=== PATIENT | female | born 1990 | race African-American/Black ===

== ENCOUNTER 2016-07-10 00:19 | Emergency (ER) | payer OTHER ==
[2016-07-10 00:29] VITALS: BMI 26.6
[2016-07-10 01:20] LABS: BASOPHIL 1.4 % (0-2.0); EOSINOPHIL 2.1 % (0-4.5); MCH 28.5 pg (25.7-33.7); MCHC 33.6 g/dl (32.0-36.0); MEAN CELL VOLUME 84.8 fl (80-96); MEAN PLT VOLUME 8.6 fl (7.5-11.1); NEUTROPHILS 63.1 % (42.8-82.8); PLATELET COUNT 203 K/MM3 (134-434); RDW 13.7 % (11.6-15.6); WHITE BLOOD COUNT 8.6 K/mm3 (4.0-10.0)
--- NOTE | 2016-07-10 01:24 | PDOC ---
[id number] No Limitations - History of Present Illness Initial Comments: 07/10/16 03:01 The patient is a 26-year-old approximately 6 weeks female (), with no significant past medical history, who presents to the emergency department complaining of chest pain that began approximately at 22:00 tonight. The patient reports she was walking at the movie theatre when she began to feel short of breath. She states her SOB was alleviated after she sat down to watch the movie, but after getting up she began to feel SOB again. She describes her chest pain as if her chest were closing up. She denies associated diaphoresis, or palpitations. She denies decrease in appetite. She reports fatigue and a mild headache. The patient reports she has recently had two colds, both of which have been resolved. She denies cough, fever, chills, or dizziness. She denies nausea, vomiting, diarrhea, or constipation. The patient denies any recent travel, sick contacts, or stress. Allergies: None reported. Past Surgical History: None reported. Social History: Non-smoker. Denies alcohol or drug use. Family History: Mother: hypertension and diabetes. <Fina Bear - Last Filed: 07/10/16 07:00> <Alicia Cornejo - Last Filed: 07/11/16 03:04> - General Chief Complaint: Chest Pain Stated Complaint: CHEST PAIN, SHRTNESS OF BREATH Time Seen by Provider: 07/10/16 00:57 Past History <Fina Bear - Last Filed: 07/10/16 07:00> - Past Medical History Anemia: No Asthma: No Cancer: No Cardiac Disorders: No CVA: No COPD: No CHF: No Dementia: No Diabetes: No GI Disorders: No Disorders: No HTN: No Hypercholesterolemia: No Liver Disease: No Seizures: No Thyroid Disease: No - Surgical History Abdominal Surgery: No Appendectomy: No Cardiac Surgery: No Cholecystectomy: No Lung Surgery: No Neurologic Surgery: No Orthopedic Surgery: No - Reproductive History (#): 3 Para: 1 Therapeutic (s) & number: Yes Spontaneous : 1 - Psycho/Social/Smoking Cessation Hx Anxiety: No Suicidal Ideation: No Smoking Status: No Smoking History: Never smoked Have you smoked in the past 12 months: No Number of Cigarettes Smoked Daily: 0 Information on smoking cessation initiated: No Hx Alcohol Use: No Drug/Substance Use Hx: No Substance Use Type: None Hx Substance Use Treatment: No <Alicia Cornejo - Last Filed: 07/11/16 03:04> - Past Medical History Allergies/Adverse Reactions: Allergies Allergy/AdvReac Type Severity Reaction Status Date / Time No Known Allergies Allergy Verified 07/10/16 00:27 Home Medications: Ambulatory Orders Nitrofurantoin Monohyd/M-Cryst [Macrobid -] 100 mg PO BID #14 capsule 07/10/16 Review of Systems - Review of Systems Able to Perform ROS?: Yes Comments:: 07/10/16 03:01 GENERAL/CONSTITUTIONAL: +Weakness. No fever or chills. HEAD, EYES, EARS, NOSE AND THROAT: No change in vision. No ear pain or discharge. No sore throat. CARDIOVASCULAR: +Chest pain, +shortness of breath. RESPIRATORY: No cough, wheezing, or hemoptysis. GASTROINTESTINAL: No nausea, vomiting, diarrhea or constipation. GENITOURINARY: No dysuria, frequency, or change in urination. MUSCULOSKELETAL: No joint or muscle swelling or pain. No neck or back pain. SKIN: No rash NEUROLOGIC: +Headache. No vertigo, loss of consciousness, or change in strength/ sensation. ENDOCRINE: No increased thirst. No abnormal weight change. HEMATOLOGIC/LYMPHATIC: No anemia, easy bleeding, or history of blood clots. ALLERGIC/IMMUNOLOGIC: No hives or skin allergy. <Fina Bear - Last Filed: 07/10/16 07:00> *Physical Exam - Vital Signs Last Vital Signs Temp Pulse Resp BP Pulse Ox 98.0 F 71 14 105/56 100 07/10/16 00:27 07/10/16 00:27 07/10/16 00:27 07/10/16 00:27 07/10/16 00:27 - Physical Exam Comments: 07/10/16 03:02 GENERAL: Awake, alert, and fully oriented, in no acute distress HEAD: No signs of trauma EYES: PERRLA, EOMI, sclera anicteric, conjunctiva clear ENT: Auricles normal inspection, hearing grossly normal, nares patent, oropharynx clear without exudates. Moist mucosa NECK: Normal ROM, supple, no lymphadenopathy, JVD, or masses LUNGS: Breath sounds equal, clear to auscultation bilaterally. No wheezes, and no crackles HEART: Regular rate and rhythm, normal S1 and S2, no murmurs, rubs or gallops ABDOMEN: Soft, nontender, normoactive bowel sounds. No guarding, no rebound. No masses EXTREMITIES: Normal range of motion, no edema. No clubbing or cyanosis. No cords, erythema, or tenderness NEUROLOGICAL: Cranial nerves II through XII grossly intact. Normal speech, normal gait SKIN: Warm, Dry, normal turgor, no rashes or lesions noted. <Fina Bear - Last Filed: 07/10/16 07:00> - Vital Signs Last Vital Signs Temp Pulse Resp BP Pulse Ox 98.0 F 71 14 105/56 100 07/10/16 00:27 07/10/16 00:27 07/10/16 00:27 07/10/16 00:27 07/10/16 00:27 <Alicia Cornejo - Last Filed: 07/11/16 03:04> Heart Score/ECG Review - ECG Impressions Comment:: 07/10/16 04:12 Vent. Rate: 72 bpm IMPRESSION: Normal sinus rhythm. Incomplete right bundle branch block. <Fina Bear - Last Filed: 07/10/16 07:00> ED Treatment Course - LABORATORY CBC & Chemistry Diagram: 07/10/16 00:54 07/10/16 00:54 - ADDITIONAL ORDERS Additional order review: Laboratory Results 07/10/16 07/10/16 07/10/16 01:20 00:54 00:54 INR Sodium 141 Potassium 3.8 Chloride 104 Carbon Dioxide 28 Anion Gap 9 BUN 14 Creatinine 1.0 D Creat Clearance w eGFR > 60 Random Glucose 83 Calcium 8.6 Total Bilirubin 0.2 AST 13 L ALT 19 Alkaline Phosphatase 61 Creatine Kinase Cancelled 155 Troponin I Cancelled < 0.02 Total Protein 6.9 Albumin 3.3 L Urine HCG, Qual Positive 07/10/16 00:54 INR 1.15 H Sodium Potassium Chloride Carbon Dioxide Anion Gap BUN Creatinine Creat Clearance w eGFR Random Glucose Calcium Total Bilirubin AST ALT Alkaline Phosphatase Creatine Kinase Troponin I Total Protein Albumin Urine HCG, Qual 07/10/16 00:54 RBC 4.18 MCV 84.8 MCHC 33.6 RDW 13.7 MPV 8.6 Neutrophils % 63.1 Lymphocytes % 23.2 Monocytes % 10.2 Eosinophils % 2.1 D Basophils % 1.4 D <Fina Bear - Last Filed: 07/10/16 07:00> - LABORATORY CBC & Chemistry Diagram: 07/10/16 00:54 07/10/16 00:54 <Alicia Cornejo - Last Filed: 07/11/16 03:04> Medical Decision Making - Medical Decision Making 07/11/16 03:02 Pt comes with multiple complaints, including dizziness. All labs and cardiac enzymes are normal. EKG is NSR; rate of 72 bpm. SHe is . Labs revealed that she has a UTI; she will be teated with macrobid. 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 <Fina Bear - Last Filed: 07/10/16 07:00> - Discharge Dispostion Admit: No <Alicia Cornejo - Last Filed: 07/11/16 03:04> Diagnosis at time of Disposition: UTI (urinary tract infection) - Discharge Dispostion Disposition: HOME Condition at time of disposition: Stable - Prescriptions Prescriptions: Nitrofurantoin Monohyd/M-Cryst [Macrobid -] 100 mg PO BID #14 capsule - Referrals Referrals: Ryan Carbajal [Primary Care Provider] - - Patient Instructions Printed Discharge Instructions: DI for Atypical Chest Pain, Urinary Tract Infection
[2016-07-10 01:40] LABS: INR 1.15 (0.82-1.09); PROTHROMBIN TIME (PATIENT) 12.7 SEC (9.98-11.88)
[2016-07-10 02:27] LABS: ALBUMIN 3.3 g/dl (3.4-5.0); ANION GAP 9 (8-16); BILIRUBIN,TOTAL 0.2 mg/dL (0.2-1.0); CALCIUM 8.6 mg/dL (8.5-10.1); CO2 28 mmol/L (21-32); GLUCOSE,RANDOM 83 mg/dL (74-106); SGOT/AST 13 U/L (15-37); SGPT/ALT 19 U/L (12-78); TOT PROT 6.9 g/dl (6.4-8.2)
[2016-07-10 02:29] LABS: ALK PHOS 61 U/L (45-117); TROPONIN I < 0.02 ng/ml (0.00-0.05)
[2016-07-10] MEDS ORDERED: SODIUM CHLORIDE 0.9% 500 ML INFUS.BAG IV ONE (03:00)
[2016-07-10 03:53] LABS: URINE APPEARANCE SLCLOUDY; URINE BILIRUBIN NEGATIVE (NEGATIVE); URINE BLOOD NEGATIVE (NEGATIVE); URINE COLOR YELLOW; URINE GLUCOSE (UA) NEGATIVE (NEGATIVE); URINE KETONE NEGATIVE (NEGATIVE); URINE NITRITE NEGATIVE (NEGATIVE); URINE PROTEIN NEGATIVE (NEGATIVE); URINE UROBILINOGEN NEGATIVE E.U./dl (0.2-1.0)
[2016-07-10 03:54] LABS: URINE LEUK ESTERASE 2+ (NEGATIVE)
[2016-07-10] MEDS ORDERED: NITROFURANTOIN MACROCRYSTAL 50 MG CAPSULE (FP) PO SCH (04:15)
[2016-07-10] MEDS ORDERED: NITROFURANTOIN MACROCRYSTAL 50 MG CAPSULE (FP) ONE (04:19)
[2016-07-10 04:31] VITALS: BP 108/58; PULSE 82; TEMP 98
[2016-07-10 05:28] LABS: URINE MUCUS RARE; URINE RBC 1 /hpf (0-3); URINE WBC 11 /hpf (3-5)
--- NOTE | 2016-07-11 23:42 | EKG ---
Test Reason : Blood Pressure : / mmHG Vent. Rate : 072 BPM Atrial Rate : 072 BPM P-R Int : 160 ms QRS Dur : 094 ms QT Int : 392 ms P-R-T Axes : 037 041 029 degrees QTc Int : 429 ms NORMAL SINUS RHYTHM INCOMPLETE RIGHT BUNDLE BRANCH BLOCK BORDERLINE ECG NO PREVIOUS ECGS AVAILABLE Confirmed by ADELINE KAY MD ([id number]) on 07/11/2016 11:42:03 PM Referred By: Confirmed By:ADELINE KAY MD
== END 2016-07-10 04:19 | disposition home or self-care (01) ==
LOC: JER 00:19
DX: O23.41 Unspecified infection of urinary tract in pregnancy, first trimester (principal); Z3A.01 Less than 8 weeks gestation of pregnancy
CPT/HCPCS: 36415; 80053; 81003; 81015; 82550; 82553; 84484; 84703; 85025; 85610; 93005; 93010; 99282-25

== ENCOUNTER 2018-07-30 22:52 | Inpatient (IN) | payer OTHER ==
[2018-07-30 23:37] LABS: BASO % 0.2 % (0-2.0); EOS % 0.8 % (0-4.5); HEMATOCRIT 34.8 % (32.4-45.2); LYMPH % 15.3 % (8-40); MCH 29.2 pg (25.7-33.7); MCHC 34.5 g/dl (32.0-36.0); MEAN CELL VOLUME 84.8 fl (80-96); MEAN PLT VOLUME 8.3 fl (7.5-11.1); MONO % 11.2 % (3.8-10.2); NEUT % 72.5 % (42.8-82.8); PLATELET COUNT 184 K/MM3 (134-434); RDW 14.4 % (11.6-15.6); WHITE BLOOD COUNT 8.7 K/mm3 (4.0-10.0)
[2018-07-30] MEDS ORDERED: DEXTROSE 5%-LACTATED RINGERS 1,000 ML IV SCH (23:45)
[2018-07-30 23:53] LABS: ACTIVATED PTT 30.6 SECONDS (25.2-36.5)
[2018-07-31 00:03] LABS: INR 1.07 (0.83-1.09); PROTHROMBIN TIME (PATIENT) 12.6 SEC (9.7-13.0)
[2018-07-31 00:04] LABS: ANION GAP 8 MMOL/L (8-16); BLOOD UREA NITROGEN 13 mg/dL (7-18); CALCIUM 8.7 mg/dL (8.5-10.1); CHLORIDE 105 mmol/L (98-107); CO2 21 mmol/L (21-32); CREATININE 0.7 mg/dL (0.55-1.3); GLUCOSE,RANDOM 99 mg/dL (74-106); SODIUM 134 mmol/L (136-145)
[2018-07-31 00:08] VITALS: BMI 36.9
[2018-07-31] MEDS ORDERED: PROMETHAZINE HCL 25 MG/1 ML VIAL IVPB ONE (00:30)
[2018-07-31] MEDS ORDERED: BUTORPHANOL TARTRATE 1 MG/ML VIAL IVPB ONE (00:30)
[2018-07-31] MEDS ORDERED: PROMETHAZINE HCL 25 MG/1 ML VIAL ONE (00:34)
[2018-07-31] MEDS ORDERED: BUTORPHANOL TARTRATE 1 MG/ML VIAL ONE ×2 (00:34)
[2018-07-31] MEDS ORDERED: LIDOCAINE HCL 1% PRESERVATIVE FREE - 30ML VIAL ONE (01:28)
[2018-07-31] MEDS ORDERED: OXYTOCIN 20 UNITS in 0.9% NS 20 UNIT/1,000 ML INFUS.BAG IV ONE ×2 (01:29→04:07)
[2018-07-31] MEDS ORDERED: FENTANYL/BUPIVACAINE/NS/PF - PCEA - 50 ML DISP.SYRIN EP ONE (02:23)
[2018-07-31] MEDS ORDERED: BUPIVACAINE HCL/PF 0.25% (2.5MG/ML) 10 ML VIAL ONE (02:29)
[2018-07-31] MEDS ORDERED: LIDO 2%/EPI 1:200000 PRESRVFRE (20 ML SDVIAL) ONE (02:29)
[2018-07-31] MEDS ORDERED: DEXTROSE 5%-LACTATED RINGERS 1,000 ML IV SCH (03:00)
--- NOTE | 2018-07-31 03:01 | HP ---
Past Medical History - Admission Chief Complaint: Labor pain History of Present Illness: 28 yo @ 40 weeks gestation, @[facility] 07/26/18, admitted for labor pain. History Source: Patient Limitations to Obtaining History: No Limitations - Past Medical History ...: 4 ...Para: 1 ...Term: 1 ...: 0 ...Spon : 0 ...Induced : 2 ...Multiple Gestation: 0 ...LMP: 10/19/17 ... Weeks Gestation by Dates: 40.4 ...EDC by Dates: 07/26/18 ...EDC by Sono: 07/26/18 - Past Surgical History Past Surgical History: Yes: None Hx Myomectomy: No Hx Transabdominal Cerclage: No - Smoking History Smoking history: Never smoked Have you smoked in the past 12 months: No Aproximately how many cigarettes per day: 0 - Alcohol/Substance Use Hx Alcohol Use: No - Social History History of Recent Travel: No Home Medications - Allergies Allergies/Adverse Reactions: Allergies Allergy/AdvReac Type Severity Reaction Status Date / Time No Known Allergies Allergy Verified 07/30/18 23:20 - Home Medications Home Medications: Ambulatory Orders Ferrous Sulfate [Iron] 325 mg PO DAILY 06/16/18 Vit 108/Iron/Folic AC [ One Tablet] 1 tab PO DAILY 07/30/18 Family Disease History - Family Disease History Family History: Unremarkable Review of Systems - Review of Systems Constitutional: reports: No Symptoms Eyes: reports: No Symptoms HENT: reports: No Symptoms Neck: reports: No Symptoms Cardiovascular: reports: No Symptoms Respiratory: reports: No Symptoms Gastrointestinal: reports: No Symptoms Genitourinary: reports: Pain Breasts: reports: No Symptoms Reported Musculoskeletal: reports: No Symptoms Integumentary: reports: No Symptoms Neurological: reports: No Symptoms Endocrine: reports: No Symptoms Hematology/Lymphatic: reports: No Symptoms Psychiatric: reports: No Symptoms Pain Intensity: 7 Physical Exam - Maternity Vital Signs: Vital Signs Temperature 98.3 F 07/31/18 01:45 Pulse Rate 67 07/31/18 01:45 Respiratory Rate 20 07/31/18 01:45 Blood Pressure 130/80 07/31/18 01:45 O2 Sat by Pulse Oximetry (%) Constitutional: Yes: Well Nourished Eyes: Yes: Conjunctiva Clear HENT: Yes: Atraumatic Neck: Yes: Supple Cardiovascular: Yes: Regular Rate and Rhythm Lungs: Clear to auscultation - Abdominal Exam/OB Number of Fetuses: Single Presentation: Vertex - Vaginal Exam/OB Vaginal Bleediing: No Dilatation (cm): 4 - Physical Exam ...Motor Strength: WNL Psychiatric: Yes: Alert, Oriented - Labs Lab Results: CBC, BMP 07/30/18 23:25 07/30/18 23:25 Problem List - Problems (1) Pain during labor Code(s): O99.89 - OTH DISEASES AND CONDITIONS COMPL PREG/CHLDBRTH; R52 - PAIN, UNSPECIFIED Assessment/Plan Active labor Admit to L&D Anticipate
[2018-07-31] MEDS: IBUPROFEN 600 MG TABLET (FP) PO PRN ×5 (03:05→21:01)
[2018-07-31] MEDS: ACETAMINOPHEN 325 MG TABLET (FP) PO PRN ×5 (03:05→21:01)
[2018-07-31] MEDS ORDERED: BENZOCAINE 28 GM HEMORRHOIDAL OINTMENT TP PRN (03:05)
[2018-07-31] MEDS ORDERED: BISACODYL 10 MG SUPP.RECT RC PRN (03:05)
[2018-07-31] MEDS ORDERED: WITCH HAZEL 50% (TUCKS) 40 PAD/JAR PAD TP PRN (03:05)
[2018-07-31] MEDS ORDERED: METHYLERGONOVINE MALEATE 0.2 MG/1 ML AMP IM PRN (03:05)
[2018-07-31] MEDS ORDERED: BENZOCAINE 20% 57 GM BOTTLE TP PRN (03:05)
--- NOTE | 2018-07-31 03:10 | PN ---
Delivery - Delivery Vaginal Delivery: Spontaneous Episiotomy/Laceration: None Delivery, Single - Feeding Plan Initial Plan: Elected not to breastfeed exclusively throughout hospitalization Remarks - Remarks Remarks: Normal spontaneous vaginal delivery Of a live boy over intact perineum. Nose / Oropharynx suction @ perineum. Cord clamped and cut. Baby handed to nurse Placenta expelled spontaneously intact.
[2018-07-31] MEDS ORDERED: OXYTOCIN 20 UNITS in 0.9% NS 20 UNIT/1,000 ML INFUS.BAG IV SCH (03:15)
[2018-07-31] MEDS: FERROUS SO4 325 MG TABLET (FP) PO SCH ×2 (10:57→21:07)
[2018-07-31] MEDS: PRENATAL VITAMINS W/ FOLIC ACID TABLET (FP) PO SCH (10:57)
[2018-08-01] MEDS: IBUPROFEN 600 MG TABLET (FP) PO PRN ×2 (03:06→22:08)
[2018-08-01] MEDS: ACETAMINOPHEN 325 MG TABLET (FP) PO PRN ×2 (03:06→22:09)
[2018-08-01 08:25] LABS: BASO % 0.5 % (0-2.0); EOS % 2.3 % (0-4.5); HEMOGLOBIN 11.3 GM/dL (10.7-15.3); LYMPH % 28.7 % (8-40); MCHC 34.1 g/dl (32.0-36.0); MEAN CELL VOLUME 84.9 fl (80-96); MEAN PLT VOLUME 8.6 fl (7.5-11.1); MONO % 11.2 % (3.8-10.2); NEUT % 57.3 % (42.8-82.8); PLATELET COUNT 187 K/MM3 (134-434); RBC 3.89 M/mm3 (3.60-5.2)
--- NOTE | 2018-08-01 09:26 | PN ---
Post Progress Note - Subjective Subjective: Pt seen/evaluated and doing well. Pain controlled, VB minimal. Tolerating regular diet. AMbulating, voiding. NO CP/SOB/F/C/SILVA. Type of Delivery: Vital Signs: Vital Signs Temperature 98.3 F 08/01/18 02:00 Pulse Rate 82 08/01/18 02:00 Respiratory Rate 18 08/01/18 02:00 Blood Pressure 124/78 08/01/18 02:00 O2 Sat by Pulse Oximetry (%) 100 07/31/18 03:45 Uterus: Yes: Fundus Firm Abdomen/GI: Yes: Abdomen soft Lochia: Yes: Rubra Lochia, amount: Small Activity: Ambulating - Labs Labs: CBC WBC 7.0 K/mm3 (4.0-10.0) 08/01/18 07:15 RBC 3.89 M/mm3 (3.60-5.2) 08/01/18 07:15 Hgb 11.3 GM/dL (10.7-15.3) 08/01/18 07:15 Hct 33.0 % (32.4-45.2) 08/01/18 07:15 MCV 84.9 fl (80-96) 08/01/18 07:15 MCH 29.0 pg (25.7-33.7) 08/01/18 07:15 MCHC 34.1 g/dl (32.0-36.0) 08/01/18 07:15 RDW 15.0 % (11.6-15.6) 08/01/18 07:15 Plt Count 187 K/MM3 (134-434) 08/01/18 07:15 MPV 8.6 fl (7.5-11.1) 08/01/18 07:15 Absolute Neuts (auto) 4.0 K/mm3 (1.5-8.0) 08/01/18 07:15 Neutrophils % 57.3 % (42.8-82.8) D 08/01/18 07:15 Lymphocytes % 28.7 % (8-40) D 08/01/18 07:15 Monocytes % 11.2 % (3.8-10.2) H 08/01/18 07:15 Eosinophils % 2.3 % (0-4.5) D 08/01/18 07:15 Basophils % 0.5 % (0-2.0) 08/01/18 07:15 Nucleated RBC % 0 % (0-0) 08/01/18 07:15 Problem List - Problems (1) Vaginal delivery Code(s): O80 - ENCOUNTER FOR FULL-TERM UNCOMPLICATED DELIVERY Assessment/Plan ambulation regular diet PO pain meds routine care
[2018-08-01] MEDS ORDERED: DIPHTH,PERTUSS(ACELL),TET 0.5 ML DISP.SYRIN IM ONE (10:00)
[2018-08-01] MEDS: PRENATAL VITAMINS W/ FOLIC ACID TABLET (FP) PO SCH (10:36)
[2018-08-01] MEDS: FERROUS SO4 325 MG TABLET (FP) PO SCH ×2 (10:36→22:08)
[2018-08-01] MEDS ORDERED: SENNOSIDES/DOCUSATE COMBO (SENNA PLUS) TABLET (UD) PO PRN (22:00)
[2018-08-02 08:33] VITALS: BP 124/57; PULSE 67; TEMP 98.1
--- NOTE | 2018-08-02 09:03 | DS ---
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 Vital Signs: Vital Signs Temperature 98.1 F 08/02/18 07:35 Pulse Rate 67 08/02/18 07:35 Respiratory Rate 20 08/02/18 07:35 Blood Pressure 124/57 L 08/02/18 07:35 O2 Sat by Pulse Oximetry (%) 100 07/31/18 03:45 Constitutional: Yes: Well Nourished, No Distress HENT: Yes: WNL Neck: Yes: WNL Cardiovascular: Yes: WNL Respiratory: Yes: WNL Gastrointestinal: Yes: WNL, Normal Bowel Sounds ....Post : Yes: Uterus firm, Uterus non-tender Breast(s): Yes: WNL Musculoskeletal: Yes: WNL Extremities: Yes: WNL Edema: No Neurological: Yes: WNL, Alert, Oriented Labs: CBC, BMP 08/01/18 07:15 07/30/18 23:25 Delivery - Delivery Vaginal Delivery: Spontaneous Type of Anesthesia: None Episiotomy/Laceration: None EBL (cc): 250 Delivery, Single - Stages of Labor Date 1st Stage Initiatied: 07/30/18 Time 1st Stage Initiated: 18:00 Date 2nd Stage Initiated: 07/31/18 Time 2nd Stage Initiated: 02:30 Date of Delivery: 07/31/18 Time of Delivery: 02:44 Time Placenta Delivered: 02:50 - 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/[place] Present: No Gender: Male Weight: 7 lb 15 oz Position: Right, OA Total Hours ROM (Hrs/Mins): 2hrs 14min - 1 Minute Total Score: 8 5 Minutes Total Score: 9 - Feeding Plan Initial Plan: Elected not to breastfeed exclusively throughout hospitalization Discharge Summary Reason For Visit: LABOR Current Active Problems Pain during labor (Acute) Vaginal delivery (Acute) Procedures: Principal: Normal vaginal delivery Hospital Course: Unremarkable Condition: Good - Instructions Diet, Activity, Other Instructions: Physical activity Resume your normal everyday activity as tolerated no heavy lifting or exercise until seen by your surgeon. You may walk unlimited derrick of and climb stairs. You may resume driving the car when you feel safe and comfortable behind the wheel. No sexual activity as instructed. Wound care If you have a bandage, leave it on, and keep dry for 48-72 hours. After that time discard the outer bandage. If they are tapes on the skin under the out of bandage leave them in place. They will peel off in the next 7 to 10 days. Do Not Peel them off. You may shower the day after surgery. If there are tapes present on the skin, you may shower over them. Diet There are no dietary restrictions. Eat healthy, high-fiber foods. Drink 6 to 8 glasses of liquid each day. This will assist in keeping your bowels are regular. Pain management You may take Tylenol or acetaminophen or Ibuprofen (for example, Motrin, Advil etc.) from my pain prescription medication is ordered should be taken as prescribed for moderate to severe pain. Call MD for any of the following: Severe pain not relieved by medication Fever of 101 or higher Excessive bleeding or drainage on dressing Inability to urinate Disposition: HOME - Home Medications Comprehensive Discharge Medication List: Ambulatory Orders Ferrous Sulfate [Iron] 325 mg PO DAILY 06/16/18 Vit 108/Iron/Folic AC [ One Tablet] 1 tab PO DAILY 07/30/18 Ibuprofen [Motrin -] 600 mg PO QID #28 tablet 08/01/18
[2018-08-02] MEDS: PRENATAL VITAMINS W/ FOLIC ACID TABLET (FP) PO SCH (09:27)
[2018-08-02] MEDS: FERROUS SO4 325 MG TABLET (FP) PO SCH (09:27)
== END 2018-08-02 11:30 | disposition home or self-care (01) | DRG 560 ==
LOC: JDEL 22:52 → JLDR 23:15 → J3W 07-31 04:30
PROVIDERS: ADMIT Obstetrics & Gynecology; ATTEND Obstetrics & Gynecology
PROC: 10E0XZZ Delivery of Products of Conception, External Approach (ICD-10-PCS; principal; 2018-07-31)
DX: O48.0 Post-term pregnancy (principal); Z3A.40 40 weeks gestation of pregnancy; Z37.0 Single live birth
CPT/HCPCS: 36415; 59025; 59409; 80048; 85025; 85610; 85730; 86593; 86850; 86900; 86901; 90715

== ENCOUNTER 2019-05-19 01:57 | Emergency (ER) | payer OTHER ==
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
[2019-05-19 03:57] VITALS: TEMP 98.1; BMI 28.0
[2019-05-19] MEDS ORDERED: KETOROLAC TROMETHAMINE 60 MG/2 ML VIAL IM ONE (04:17)
[2019-05-19] MEDS ORDERED: KETOROLAC TROMETHAMINE 60 MG/2 ML VIAL ONE (04:20)
[2019-05-19] MEDS ORDERED: LIDOCAINE 5% TOPICAL PATCH TP ONE (05:45)
[2019-05-19] MEDS ORDERED: LIDOCAINE 5% TOPICAL PATCH ONE (06:06)
[2019-05-19 06:18] VITALS: BP 117/74; PULSE 70
[2019-05-19] MEDS ORDERED: LIDOCAINE PATCH REMOVAL MC SCH (22:00)
== END 2019-05-19 06:15 | disposition home or self-care (01) ==
LOC: JER 01:57
DX: M62.830 Muscle spasm of back (principal); V49.49XA Driver injured in collision with other motor vehicles in traffic accident, initial encounter; Y92.414 Local residential or business street as the place of occurrence of the external cause; Y93.89 Activity, other specified; Y99.8 Other external cause status
CPT/HCPCS: 71046-TC-FY; 72100-TC-FY; 84703; 99282-25

== ENCOUNTER 2020-04-23 18:28 | Emergency (ER) | payer OTHER ==
[2020-04-23 18:34] VITALS: TEMP 98.5; BMI 28.8
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
[2020-04-23 18:53] LABS: BASO % 0.5 % (0-2.0); EOS % 2.8 % (0-4.5); HEMATOCRIT 40.5 % (32.4-45.2); HEMOGLOBIN 13.2 GM/dL (10.7-15.3); LYMPH % 29.1 % (8-40); MCHC 32.5 g/dl (32.0-36.0); MEAN CELL VOLUME 89.3 fl (80-96); MEAN PLT VOLUME 8.9 fl (7.5-11.1); MONO % 9.9 % (3.8-10.2); NEUT % 57.7 % (42.8-82.8); PLATELET COUNT 245 K/MM3 (134-434); RBC 4.54 M/mm3 (3.60-5.2); RDW 15.1 % (11.6-15.6); WHITE BLOOD COUNT 6.4 K/mm3 (4.0-10.0)
[2020-04-23 19:21] LABS: POTASSIUM 4.2 mmol/L (3.5-5.1)
[2020-04-23 19:23] LABS: ALBUMIN 3.6 g/dl (3.4-5.0); CALCIUM 9.4 mg/dL (8.5-10.1); MAGNESIUM 2.4 mg/dL (1.8-2.4)
[2020-04-23 19:24] LABS: BLOOD UREA NITROGEN 20.6 mg/dL (7-18)
[2020-04-23 19:26] LABS: CREATININE 1.1 mg/dL (0.55-1.3)
[2020-04-23 19:28] LABS: BILIRUBIN,TOTAL 0.4 mg/dL (0.2-1); TOT PROT 7.6 g/dl (6.4-8.2)
[2020-04-23] MEDS ORDERED: LACTATED RINGERS SOLUTION 1000 ML INFUS.BAG IV ONE (19:38)
[2020-04-23] MEDS ORDERED: SODIUM CHLORIDE 1,000 ML IV STA (19:38)
[2020-04-23 20:02] LABS: EPI CELLS >36 /uL (0-25.1); HCG,QUALITATIVE URINE Negative; HYALINE CASTS 1 /uL (0-3.1); PH,URINE 5.5 (5.0-8.0); URINE APPEARANCE CLOUDY; URINE BACTERIA 262 /uL (0-1359); URINE BILIRUBIN NEGATIVE (NEGATIVE); URINE COLOR YELLOW; URINE GLUCOSE (UA) NEGATIVE (NEGATIVE); URINE KETONE NEGATIVE (NEGATIVE); URINE LEUK ESTERASE TRACE (NEGATIVE); URINE NITRITE NEGATIVE (NEGATIVE); URINE PROTEIN NEGATIVE (NEGATIVE); URINE RBC 2 /uL (0-23.9); URINE UROBILINOGEN 0.2 mg/dL (0.2-1.0); URINE WBC 22 /uL (0-25.8)
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
[2020-04-23 22:27] VITALS: BP 132/88; PULSE 86
--- NOTE | 2020-04-24 11:49 | EKG ---
Test Reason : Blood Pressure : / mmHG Vent. Rate : 060 BPM Atrial Rate : 060 BPM P-R Int : 160 ms QRS Dur : 090 ms QT Int : 412 ms P-R-T Axes : 023 032 029 degrees QTc Int : 412 ms NORMAL SINUS RHYTHM NORMAL ECG WHEN COMPARED WITH ECG OF 10-JUL-2016 00:40, T WAVE INVERSION NOW EVIDENT IN ANTERIOR LEADS Confirmed by CHARITY STEIN MD ([id number]) on 04/24/2020 11:49:16 AM Referred By: Confirmed By:CHARITY STEIN MD
== END 2020-04-23 22:27 | disposition home or self-care (01) ==
LOC: JER 18:28
PROC: 3E0337Z Introduction of Electrolytic and Water Balance Substance into Peripheral Vein, Percutaneous Approach (ICD-10-PCS; principal; 2020-04-23)
DX: R53.1 Weakness (principal); R11.2 Nausea with vomiting, unspecified
CPT/HCPCS: 36415; 70450-TC; 80053; 81003; 83036; 83735; 84443; 84703; 85025; 87077; 87086; 87389; 87491; 87591; 93005; 93010; 99285-25

== ENCOUNTER 2020-05-16 18:23 | Emergency (ER) | payer OTHER ==
[2020-05-16 18:39] VITALS: BP 124/82; PULSE 69; TEMP 98.1; BMI 28.0
== END 2020-05-16 20:06 | disposition home or self-care (01) ==
LOC: JER 18:23 → JERFT 18:23
DX: Z03.818 Encounter for observation for suspected exposure to other biological agents ruled out (principal)
CPT/HCPCS: 93005; 93010; 99284-25; C9803; U0003

== ENCOUNTER 2020-05-19 19:28 | Emergency (ER) | payer OTHER ==
[2020-05-19 19:32] VITALS: BP 113/79; PULSE 78; TEMP 98.4; BMI 28.3
[2020-05-19 21:49] LABS: BASO % 0.7 % (0-2.0); EOS % 2.9 % (0-4.5); HEMATOCRIT 40.9 % (32.4-45.2); HEMOGLOBIN 13.2 GM/dL (10.7-15.3); LYMPH % 30.9 % (8-40); MCH 28.5 pg (25.7-33.7); MCHC 32.3 g/dl (32.0-36.0); MEAN CELL VOLUME 88.4 fl (80-96); MEAN PLT VOLUME 9.8 fl (7.5-11.1); MONO % 8.9 % (3.8-10.2); NEUT % 56.6 % (42.8-82.8); PLATELET COUNT 229 K/MM3 (134-434); RBC 4.62 M/mm3 (3.60-5.2); RDW 13.7 % (11.6-15.6)
[2020-05-19 21:57] LABS: HCG,QUALITATIVE URINE Negative
[2020-05-19 21:58] LABS: EPI CELLS 15 /uL (0-25.1); HYALINE CASTS 1 /uL (0-3.1); URINE APPEARANCE CLEAR; URINE BACTERIA 167 /uL (0-1359); URINE BILIRUBIN NEGATIVE (NEGATIVE); URINE COLOR YELLOW; URINE GLUCOSE (UA) NEGATIVE (NEGATIVE); URINE KETONE TRACE (NEGATIVE); URINE LEUK ESTERASE 1+ (NEGATIVE); URINE NITRITE NEGATIVE (NEGATIVE); URINE PROTEIN NEGATIVE (NEGATIVE); URINE RBC 3 /uL (0-23.9); URINE WBC 11 /uL (0-25.8)
[2020-05-19 22:06] LABS: CHLORIDE 107 mmol/L (98-107); POTASSIUM 3.7 mmol/L (3.5-5.1); SODIUM 141 mmol/L (136-145)
[2020-05-19 22:08] LABS: CALCIUM 9.1 mg/dL (8.5-10.1)
[2020-05-19 22:09] LABS: ALBUMIN 3.4 g/dl (3.4-5.0); ANION GAP 3 MMOL/L (8-16); BLOOD UREA NITROGEN 19.6 mg/dL (7-18); CO2 31 mmol/L (21-32); GLUCOSE,RANDOM 88 mg/dL (74-106)
[2020-05-19 22:12] LABS: CREATININE 1.1 mg/dL (0.55-1.3); SGOT/AST 17 U/L (15-37); SGPT/ALT 16 U/L (13-61)
[2020-05-19 22:14] LABS: BILIRUBIN,TOTAL 0.5 mg/dL (0.2-1); TOT PROT 7.5 g/dl (6.4-8.2)
[2020-05-19 22:15] LABS: ALK PHOS 80 U/L (45-117)
== END 2020-05-20 00:47 | disposition home or self-care (01) ==
LOC: JER 19:28
DX: R13.10 Dysphagia, unspecified (principal)
CPT/HCPCS: 36415; 70491-TC; 71046-TC-FY; 80053; 81003; 82550; 84443; 84484; 84703; 85025; 87070; 87086; 87880; 93005; 93010; 99285-25; Q9967

== ENCOUNTER 2020-08-18 11:44 | Emergency (ER) | payer OTHER ==
[2020-08-18 12:13] VITALS: TEMP 98.4; BMI 28.5
[2020-08-18] MEDS ORDERED: FAMOTIDINE 20 MG/50 ML IVPB 20 MG/50 ML MG IVPB ONE ×2 (13:34→13:47)
[2020-08-18] MEDS ORDERED: SODIUM CHLORIDE 1,000 ML IV STA (13:34)
[2020-08-18] MEDS ORDERED: MAG HYDROX/AL HYDROX/SIMETH -MYLANTA- ORAL SUSPENSION PO ONE (13:35)
[2020-08-18] MEDS ORDERED: ACETAMINOPHEN 1000 MG/100 ML VIAL (NON FORMULARY) IVPB ONE (13:35)
[2020-08-18] MEDS ORDERED: MAG HYDROX/AL HYDROX/SIMETH 30 ML UNIT-DOSE CUP ONE (13:46)
[2020-08-18] MEDS ORDERED: ACETAMINOPHEN INJECTION 100 ML IVPB ONE (13:46)
[2020-08-18 13:55] LABS: BASO % 0.9 % (0-2.0); EOS % 2.5 % (0-4.5); HEMATOCRIT 36.5 % (32.4-45.2); HEMOGLOBIN 12.4 GM/dL (10.7-15.3); LYMPH % 42.7 % (8-40); MCH 29.3 pg (25.7-33.7); MEAN CELL VOLUME 86.2 fl (80-96); MEAN PLT VOLUME 8.7 fl (7.5-11.1); MONO % 7.8 % (3.8-10.2); NEUT % 46.1 % (42.8-82.8); PLATELET COUNT 256 K/MM3 (134-434); RBC 4.23 M/mm3 (3.60-5.2); RDW 13.9 % (11.6-15.6)
[2020-08-18 14:19] LABS: EPI CELLS 10 /uL (0-25.1); HYALINE CASTS 1 /uL (0-3.1); URINE APPEARANCE CLEAR; URINE BACTERIA 1857 /uL (0-1359); URINE BILIRUBIN NEGATIVE (NEGATIVE); URINE COLOR YELLOW; URINE GLUCOSE (UA) NEGATIVE (NEGATIVE); URINE KETONE NEGATIVE (NEGATIVE); URINE LEUK ESTERASE TRACE (NEGATIVE); URINE NITRITE NEGATIVE (NEGATIVE); URINE PROTEIN NEGATIVE (NEGATIVE); URINE RBC 4 /uL (0-23.9); URINE UROBILINOGEN 0.2 mg/dL (0.2-1.0); URINE WBC 14 /uL (0-25.8)
[2020-08-18 14:20] LABS: HCG,QUALITATIVE URINE Negative
[2020-08-18 14:26] LABS: CHLORIDE 104 mmol/L (98-107); POTASSIUM 4.2 mmol/L (3.5-5.1); SODIUM 136 mmol/L (136-145)
[2020-08-18 14:28] LABS: CALCIUM 8.9 mg/dL (8.5-10.1)
[2020-08-18 14:29] LABS: ALBUMIN 3.5 g/dl (3.4-5.0); ANION GAP 5 MMOL/L (8-16); BLOOD UREA NITROGEN 13.8 mg/dL (7-18); CO2 27 mmol/L (21-32); GLUCOSE,RANDOM 77 mg/dL (74-106)
[2020-08-18 14:32] LABS: CREATININE 0.9 mg/dL (0.55-1.3); SGOT/AST 16 U/L (15-37); SGPT/ALT 19 U/L (13-61)
[2020-08-18 14:33] LABS: BILIRUBIN,TOTAL 0.7 mg/dL (0.2-1); TOT PROT 7.4 g/dl (6.4-8.2)
[2020-08-18 14:34] LABS: ALK PHOS 71 U/L (45-117)
[2020-08-18 15:00] VITALS: BP 132/66; PULSE 70
== END 2020-08-18 16:45 | disposition home or self-care (01) ==
LOC: JERFT 11:44 → JER 11:44 → JERFT 16:45
PROC: 3E0333Z Introduction of Anti-inflammatory into Peripheral Vein, Percutaneous Approach (ICD-10-PCS; principal; 2020-08-18)
PROC: 3E033GC Introduction of Other Therapeutic Substance into Peripheral Vein, Percutaneous Approach (ICD-10-PCS; 2020-08-18)
PROC: 3E0337Z Introduction of Electrolytic and Water Balance Substance into Peripheral Vein, Percutaneous Approach (ICD-10-PCS; 2020-08-18)
DX: N39.0 Urinary tract infection, site not specified (principal); R51.9 Headache, unspecified; B37.9 Candidiasis, unspecified
CPT/HCPCS: 36415; 70450-TC; 71046-TC-FY; 80053; 81003; 82550; 84484; 84703; 85025; 87070; 87077; 87086; 87205; 93005; 93010; 99285-25; J0131

== ENCOUNTER 2020-12-04 21:56 | Emergency (ER) | payer OTHER ==
[2020-12-04 22:13] VITALS: BP 118/77; PULSE 92; TEMP 98.6; BMI 28.8
[2020-12-05] MEDS ORDERED: BACITRACIN 15 GM TUBE TOPICAL OINTMENT ONE (01:13)
== END 2020-12-05 02:05 | disposition home or self-care (01) ==
LOC: JER 21:56
DX: O20.8 Other hemorrhage in early pregnancy (principal)
CPT/HCPCS: 36415; 76817-TC; 80053; 81003; 84702; 85025; 85610; 85730; 86850; 86900; 86901; 87086; 99284-25

== ENCOUNTER 2021-07-13 10:00 | Inpatient (IN) | payer OTHER ==
[2021-07-13] MEDS ORDERED: BUTORPHANOL TARTRATE 2 MG/ML VIAL IVPB PRN (10:17)
[2021-07-13] MEDS ORDERED: PROMETHAZINE HCL 25 MG/1 ML VIAL IVPB ONE (10:19)
[2021-07-13] MEDS ORDERED: DINOPROSTONE 10 MG VAGINAL SUPPOSITORY VG ONE (10:20)
[2021-07-13] MEDS ORDERED: AMPICILLIN - 2 GM in SODIUM CHLORIDE 100 ML IVPB ONE (10:29)
[2021-07-13 11:46] VITALS: BMI 34.8
[2021-07-13] MEDS ORDERED: AMPICILLIN - 1 GM in SODIUM CHLORIDE 100 ML IVPB SCH (14:30)
[2021-07-13] MEDS: ELECTROLYTE-148 SOLN 1,000 ML IV SCH ×2 (14:56→20:00)
[2021-07-13] MEDS ORDERED: AMPICILLIN SODIUM 2 GM VIAL ONE (15:59)
[2021-07-13] MEDS ORDERED: AMPICILLIN SODIUM 1 GM VIAL ONE ×2 (19:55→23:43)
[2021-07-13] MEDS: AMPICILLIN - 1 GM in SODIUM CHLORIDE 100 ML IVPB SCH ×2 (20:00→23:50)
[2021-07-14] MEDS ORDERED: FENTANYL/BUPIVACAINE/NS/PF - PCEA - 50 ML DISP.SYRIN EP ONE (01:02)
[2021-07-14] MEDS ORDERED: OXYTOCIN 20 UNITS in 0.9% NS 20 UNIT/1,000 ML INFUS.BAG IV ONE (01:17)
[2021-07-14] MEDS ORDERED: LIDOCAINE HCL 1% PRESERVATIVE FREE - 30ML VIAL ONE (01:17)
[2021-07-14] MEDS ORDERED: NALOXONE HCL 0.4 MG/ML VIAL IVPUSH PRN (01:17)
[2021-07-14] MEDS ORDERED: FENTANYL/BUPIVACAINE/NS/PF - PCEA - 50 ML DISP.SYRIN EP SCH (01:30)
[2021-07-14] MEDS: ELECTROLYTE-148 SOLN 1,000 ML IV SCH (02:00)
[2021-07-14] MEDS: AMPICILLIN - 1 GM in SODIUM CHLORIDE 100 ML IVPB SCH (03:45)
[2021-07-14] MEDS ORDERED: AMPICILLIN SODIUM 1 GM VIAL ONE (03:48)
[2021-07-14] MEDS ORDERED: BENZOCAINE 20% 57 GM BOTTLE TP PRN (04:13)
[2021-07-14] MEDS ORDERED: BISACODYL 10 MG SUPP.RECT RC PRN (04:13)
[2021-07-14] MEDS ORDERED: oxyCODONE HCL 5 MG TABLET PO PRN (04:13)
[2021-07-14] MEDS ORDERED: WITCH HAZEL 50% (TUCKS) 40 PAD/JAR PAD TP PRN (04:13)
[2021-07-14] MEDS ORDERED: BENZOCAINE 28 GM HEMORRHOIDAL OINTMENT TP PRN (04:13)
[2021-07-14] MEDS ORDERED: METHYLERGONOVINE MALEATE 0.2 MG/1 ML AMP IM PRN (04:13)
[2021-07-14] MEDS ORDERED: ACETAMINOPHEN 325 MG TABLET (FP) PO PRN (04:13)
[2021-07-14] MEDS ORDERED: OXYTOCIN 20 UNITS in 0.9% NS 20 UNIT/1,000 ML INFUS.BAG IV SCH (04:15)
[2021-07-14] MEDS: IBUPROFEN 600 MG TABLET (FP) PO PRN ×4 (08:55→21:42)
[2021-07-14] MEDS: FERROUS SO4 325 MG TABLET (FP) PO SCH ×3 (08:56→17:50)
[2021-07-14] MEDS: PRENATAL VITAMINS W/ FOLIC ACID TABLET (FP) PO SCH (09:21)
[2021-07-15] MEDS: IBUPROFEN 600 MG TABLET (FP) PO PRN (05:28)
[2021-07-15 08:39] LABS: BASO % 0.2 % (0-2.0); EOS % 3.5 % (0-4.5); HEMOGLOBIN 9.6 GM/dL (10.7-15.3); LYMPH % 22.4 % (8-40); MCH 28.3 pg (25.7-33.7); MCHC 33.2 g/dl (32.0-36.0); MEAN CELL VOLUME 85.3 fl (80-96); MEAN PLT VOLUME 7.5 fl (7.5-11.1); MONO % 12.8 % (3.8-10.2); NEUT % 61.1 % (42.8-82.8); PLATELET COUNT 176 10^3/uL (134-434); RDW 15.1 % (11.6-15.6); WHITE BLOOD COUNT 6.1 K/mm3 (4.0-10.0)
[2021-07-15] MEDS: FERROUS SO4 325 MG TABLET (FP) PO SCH ×3 (08:56→18:39)
[2021-07-15] MEDS: PRENATAL VITAMINS W/ FOLIC ACID TABLET (FP) PO SCH (10:35)
[2021-07-15] MEDS ORDERED: SENNOSIDES/DOCUSATE COMBO (SENNA PLUS) TABLET (UD) PO PRN (22:00)
[2021-07-16] MEDS: FERROUS SO4 325 MG TABLET (FP) PO SCH ×2 (07:59→13:47)
[2021-07-16] MEDS: IBUPROFEN 600 MG TABLET (FP) PO PRN (07:59)
[2021-07-16] MEDS: PRENATAL VITAMINS W/ FOLIC ACID TABLET (FP) PO SCH (09:31)
[2021-07-16 13:54] VITALS: BP 102/66; PULSE 85; TEMP 97.5
== END 2021-07-16 16:30 | disposition home or self-care (01) | DRG 560 ==
LOC: JLDR 10:00 → J3W 07-14 05:37
PROVIDERS: ADMIT Obstetrics & Gynecology; ATTEND Obstetrics & Gynecology
PROC: 3E0P7VZ Introduction of Hormone into Female Reproductive, Via Natural or Artificial Opening (ICD-10-PCS; principal; 2021-07-13)
PROC: 10E0XZZ Delivery of Products of Conception, External Approach (ICD-10-PCS; 2021-07-14)
DX: O48.0 Post-term pregnancy (principal); O99.824 Streptococcus B carrier state complicating childbirth; Z3A.40 40 weeks gestation of pregnancy; Z37.0 Single live birth
CPT/HCPCS: 36415; 59409; 80048; 85025; 85610; 85730; 86780; 86850; 86900; 86901; C9803; U0003; U0005

== ENCOUNTER 2023-09-25 20:58 | Emergency (ER) | payer OTHER ==
[2023-09-25 21:09] VITALS: BP 118/75; PULSE 75; RESP 18; TEMP 98.3; BMI 36.9
[2023-09-25] MEDS ORDERED: diazePAM 5 MG TABLET ONE (22:12)
[2023-09-25] MEDS ORDERED: KETOROLAC TROMETHAMINE 30 MG/1 ML VIAL ONE (22:13)
[2023-09-25] MEDS: diazePAM 5 MG TABLET PO ONE (22:17)
[2023-09-25] MEDS: KETOROLAC TROMETHAMINE 30 MG/1 ML VIAL IM ONE (22:17)
== END 2023-09-25 23:49 | disposition home or self-care (01) ==
LOC: JER 20:58
PROC: 3E0233Z Introduction of Anti-inflammatory into Muscle, Percutaneous Approach (ICD-10-PCS; principal; 2023-09-25)
DX: M54.2 Cervicalgia (principal); M25.511 Pain in right shoulder; M25.512 Pain in left shoulder; M25.552 Pain in left hip; M25.562 Pain in left knee; R51.9 Headache, unspecified; S16.1XXA Strain of muscle, fascia and tendon at neck level, initial encounter; S76.012A Strain of muscle, fascia and tendon of left hip, initial encounter; S86.912A Strain of unspecified muscle(s) and tendon(s) at lower leg level, left leg, initial encounter; S46.911A Strain of unspecified muscle, fascia and tendon at shoulder and upper arm level, right arm, initial encounter; S46.912A Strain of unspecified muscle, fascia and tendon at shoulder and upper arm level, left arm, initial encounter; V43.62XA Car passenger injured in collision with other type car in traffic accident, initial encounter; Y92.410 Unspecified street and highway as the place of occurrence of the external cause
CPT/HCPCS: 71046-TC-FY; 72050-TC-FY; 72070-TC-FY; 73502-TC-LT-FY; 73562-TC-LT-FY; 93005; 93010; 99284-25

== ENCOUNTER 2023-10-08 01:40 | Emergency (ER) | payer OTHER ==
[2023-10-08 01:48] VITALS: BP 109/76; PULSE 73; RESP 19; TEMP 98; BMI 33.0
[2023-10-08] MEDS ORDERED: ACETAMINOPHEN 500 MG TABLET (FP) ONE (03:16)
[2023-10-08] MEDS: ACETAMINOPHEN 500 MG TABLET (FP) PO ONE (03:29)
[2023-10-08 03:49] LABS: THROAT:GRP A STREP NOT DETECTED (NOTDETECTED)
[2023-10-08 05:15] LABS: BASO % 0.7 % (0-2.0); EOS % 2.4 % (0-4.5); HEMATOCRIT 39.6 % (32.4-45.2); LYMPH % 43.1 % (8-40); MCH 27.5 pg (25.7-33.7); MCHC 32.8 g/dl (32.0-36.0); MEAN CELL VOLUME 84.1 fl (80-96); MEAN PLT VOLUME 8.8 fl (7.5-11.1); MONO % 10.1 % (3.8-10.2); NEUT % 43.7 % (42.8-82.8); PLATELET COUNT 244 10^3/uL (134-434); RBC 4.71 M/mm3 (3.60-5.2); RDW 13.5 % (11.6-15.6); WHITE BLOOD COUNT 7.2 K/mm3 (4.0-10.0)
[2023-10-08 05:37] LABS: POTASSIUM 4.5 mmol/L (3.5-5.1)
[2023-10-08 05:39] LABS: BLOOD UREA NITROGEN 14.9 mg/dL (7-18); CALCIUM 9.2 mg/dL (8.5-10.1)
[2023-10-08 05:40] LABS: ALBUMIN 3.3 g/dl (3.4-5.0)
[2023-10-08 05:44] LABS: BILIRUBIN,TOTAL 0.3 mg/dL (0.2-1)
[2023-10-08 05:45] LABS: TOT PROT 7.2 g/dl (6.4-8.2)
== END 2023-10-08 05:57 | disposition home or self-care (01) ==
LOC: JER 01:40
DX: R07.89 Other chest pain (principal); J02.9 Acute pharyngitis, unspecified; Z20.822 Contact with and (suspected) exposure to COVID-19
CPT/HCPCS: 0241U-QW; 36415; 71046-TC-FY; 80053; 84484; 84703; 85025; 87651; 93005; 93010; 99285-25

== ENCOUNTER 2024-01-03 01:27 | Emergency (ER) | payer OTHER ==
[2024-01-03 01:36] VITALS: BP 120/80; PULSE 66; RESP 20; TEMP 98.8; BMI 32.5
[2024-01-03] MEDS ORDERED: CLINDAMYCIN HCL 150 MG CAPSULE (FP) ONE (03:32)
[2024-01-03] MEDS: CLINDAMYCIN HCL 150 MG CAPSULE (FP) PO ONE (03:40)
[2024-01-03] MEDS: ACETAMINOPHEN 1000 MG/100 ML BAG IVPB ONE (04:05)
[2024-01-03] MEDS ORDERED: ACETAMINOPHEN 325 MG TABLET (FP) ONE (04:13)
[2024-01-03] MEDS: ACETAMINOPHEN 325 MG TABLET (FP) PO ONE (04:16)
== END 2024-01-03 05:14 | disposition home or self-care (01) ==
LOC: JER 01:27
DX: S91.202A Unspecified open wound of left great toe with damage to nail, initial encounter (principal); R51.9 Headache, unspecified; Y04.0XXA Assault by unarmed brawl or fight, initial encounter
CPT/HCPCS: 70160-TC-FY; 99283-25